=== PATIENT | female | born 1985 | race Two or more races ===

== ENCOUNTER 2018-12-01 09:14 | Emergency (ER) | payer OTHER ==
[~2018-12-01] VITALS: Ht 162.6 cm; Wt 61.2 kg
[2018-12-01] MEDS ORDERED: NORFLEX100MG PO (13:47)
[2018-12-01] MEDS ORDERED: KETO10TA2 PO (13:47)
== END 2018-12-01 14:35 | disposition home or self-care (01) ==
LOC: ER 09:14
DX: M54.2 Cervicalgia (principal); R07.89 Other chest pain; M25.511 Pain in right shoulder